=== PATIENT | female | born 1975 | race Caucasian/White ===

== ENCOUNTER 2019-09-26 19:21 | Emergency (ER) | payer BC, SELFPAY ==
--- NOTE | ~2019-09-26 | CT_ITS ---
EXAMINATION: CT soft tissue neck w con DATE: 09/26/2019 20:50 INDICATION: Left neck swelling TECHNIQUE: Computed tomography (CT) of the neck was performed with 75 mL Omnipaque-350 intravenous co ntrast. The dose-length product was 378.46 mGy-cm. Automated exposure control and iterative reconstru ction technique were employed. COMPARISON: None FINDINGS: There is enlargement of the left submandibular gland with mild surrounding inflammation, co nsistent with sialoadenitis. No stone identified. Mucosal space is normal. Parapharyngeal spaces are symmetric. No significant cervical lymphadenopathy. Thyroid gland is normal. Lung apices are normal. No abscess identified. No significant vascular abnormality. IMPRESSION: 1. Sialoadenitis of the left submandibular gland. Reviewed, dictated and finalized at location A.
[2019-09-26 19:30] VITALS: BP 135/88; PULSE 58; RESP 16; TEMP 36.7; O2SAT 100
--- NOTE | 2019-09-26 20:05 | ED.GENADULT ---
HPI - General Adult General Chief complaint: Unspecified Stated complaint: swelling to neck Time Seen by Provider: 09/26/19 20:01 Source: RN notes reviewed History of Present Illness HPI narrative: Patient presents emergency department from home for left-sided neck swelling. Patient states symptoms began this morning. She noted swelling in the left side of her jaw and neck. She denies having fevers or chills rhinorrhea ear pain. Notes mild sore throat but denies any difficulty swallowing or shortness of breath. Patient had gone to urgent care had been diagnosed with proctitis and has been given an injection of steroids and sent home with prednisone and Augmentin. She states she has not taken Augmentin at this point but knows the swelling was increased and came to the ED for further evaluation. Related Data Home Medications Medication Instructions Recorded Confirmed fluoxetine 20 mg capsule 20 mg PO DAILY 06/16/19 06/16/19 Allergies Allergy/AdvReac Type Severity Reaction Status Date / Time No Known Allergies Allergy Unknown Verified 09/26/19 19:35 Review of Systems Review of Systems: Narrative: Gen.: Denies fevers or chills Eyes: Denies eye pain or visual change ENT: See HPI Respiratory: Denies shortness of breath or cough CV: Denies chest pain or palpitations GI: Denies abdominal pain nausea, emesis or diarrhea Musculoskeletal: Denies back pain or muscle pain Neuro: Denies numbness, tingling, weakness or focal weakness Skin: Denies rash Except as documented, all other systems reviewed and negative [facility] Past Medical History Medical History Anxiety Diverticulosis GERD (gastroesophageal reflux disease) Surgical History Surgical History (Updated 06/16/19 @ 11:05 by Whit Melchor CMA) History of radical hysterectomy 08/2017 Family History Family History (Updated 06/16/19 @ 11:04 by Whit Melchor CMA) Father Patient's father is in good health Mother MVA (motor vehicle accident) Social History Social History Smoking status: Former smoker Smoking end date: 02/25/93 Alcohol intake: current Exam Narrative: Exam Narrative: APPEARANCE: No acute distress, nontoxic, resting in bed EYES: EOMI HEENT: Normocephalic, atraumatic, TMs clear bilaterally nares patent oral mucosa moist, no erythema exudate posterior pharynx, tonsils 2+, uvula midline, tolerating own secretions, voice normal, no sub-lingular tenderness, no submandibular tenderness, mild swelling and tenderness over the left lateral jaw and the left lateral neck but no overlying erythema no fluctuance RESPIRATORY: No respiratory distress Clear to auscultation bilaterally with no rhonchi wheezing or rales. CARDIOVASCULAR: Regular rate and rhythm without murmurs rubs or gallops. ABDOMINAL: Soft, nontender, nondistended, no rebound or guarding MUSCULOSKELETAl: Moves all extremities. No clubbing, cyanosis or edema. NEURO: Awake and alert. Following commands, speech normal, no focal deficits SKIN:: Warm, dry. No rashes lesions or abrasions PSYCHIATRIC: Normal affect/mood, Course Course Emergency Course: Patient currently with prescription for steroids and Augmentin at home Discussed with patient results of workup and diagnosis. Discussed need for follow-up with primary care, proper use of medication, and reasons to return to the emergency department. Patient understands and agrees to current treatment plan Vital Signs Vital signs: Vital Signs Temperature 98.0 F 09/26/19 19:30 Pulse Rate 58 L 09/26/19 19:30 Respiratory Rate 16 09/26/19 19:30 Blood Pressure 135/88 09/26/19 19:30 Pulse Oximetry 100 09/26/19 19:30 Temperature 98.0 F 09/26/19 19:30 Pulse Rate 66 09/26/19 20:32 Respiratory Rate 18 09/26/19 20:32 Blood Pressure 129/90 09/26/19 20:32 Pulse Oximetry 100 09/26/19 20:32 Medical Dec
[2019-09-26] MEDS: SODIUM CHLORIDE 0.9% IV 1,000 ML 999 ML IV CONT (20:17)
[2019-09-26 20:21] LABS: Basophils Absolute Auto 0.1 K/mm3 (0.0-0.1); Basophils Percent Auto 0.8 % (0.2-1.2); Eosinophils Percent Auto 0.5 % (0-4.4); Hematocrit 40.1 % (37.0-47.0); Hemoglobin 13.7 g/dL (12.0-15.0); Immature Granulocyte Absolute 0.06 K/mm3 (0.00-0.031); Immature Granulocyte Percent A 0.7 % (0-0.5); Lymphocytes Absolute Auto 1.03 K/mm3 (0.9-3.2); Lymphocytes Percent Auto 11.9 % (18.3-44.2); Mean Corpuscular HGB Conc 34.2 g/dl (32-36); Mean Corpuscular Hemoglobin 30.3 pg (26-34); Mean Corpuscular Volume 88.7 fl (80-100); Monocytes Absolute Auto 0.1 K/mm3 (0.1-0.6); Neutrophils Absolute Auto 7.4 K/mm3 (1.3-6.7); Neutrophils Percent Auto 85.1 % (45.5-73.1); Platelet Count Result 297 k/mm3 (150-375); Red Blood Count 4.52 M/mm3 (4.2-5.4); Red Cell Distribution Width 12.4 % (11.5-14.5); White Blood Count 8.7 K/mm3 (4.5-10.0)
[2019-09-26 20:32] VITALS: BP 129/90; PULSE 66; RESP 18; O2SAT 100
[2019-09-26 20:34] LABS: Alanine Aminotransferase 31 U/L (4-35); Albumin Level 4.5 g/dL (3.5-5.1); Alkaline Phosphatase 71 U/L (38-126); Aspartate Amino Transferase 29 U/L (14-36); Bilirubin,Total 1.2 mg/dL (0.2-1.3); Blood Urea Nitrogen 11 mg/dL (7-17); Calcium 9.2 mg/dL (8.4-10.2); Carbon Dioxide 25 mmol/L (22-30); Chloride 101 mmol/L (98-107); Estimated CRCL calculation 69 ml/min; Estimated Glomerular Filt Rate > 60; Glucose 114 mg/dL (65-105); Sodium 134 mmol/L (137-145)
[2019-09-26] MEDS: AMPICILLIN SODIUM/SULBACTAM 3 GM in SODIUM CHLORIDE 0.9% IV 100 ML IVPB (21:57)
[2019-09-26 22:29] VITALS: BP 126/73; PULSE 78; RESP 18; O2SAT 98
== END 2019-09-26 22:31 | disposition home or self-care (01) ==
PROVIDERS: Emergency Provider Emergency Medicine; PCP Internal Medicine
DX: K11.20 Sialoadenitis, unspecified (principal); F41.9 Anxiety disorder, unspecified; K57.90 Diverticulosis of intestine, part unspecified, without perforation or abscess without bleeding; K21.9 Gastro-esophageal reflux disease without esophagitis; Z87.891 Personal history of nicotine dependence
CPT/HCPCS: 36415; 70491; 80053; 85025; 87081; 87880; 96361; 96365; 99284; J7030; Q9967

== ENCOUNTER 2020-05-09 17:03 | Outpatient (CLI) | payer BC, SELFPAY | END 2020-05-09 17:04 | disposition home or self-care (01) | LOC: ANHCOVIDVC 17:03 | PROVIDERS: PCP Internal Medicine | DX: Z23 Encounter for immunization (principal) | CPT/HCPCS: 0001A; 91300 ==

== ENCOUNTER 2020-05-16 16:17 | Outpatient (CLI) | payer BC, SELFPAY ==
--- NOTE | ~2020-05-16 | CT_ITS ---
EXAMINATION: CT abdomen pelvis w con DATE: 05/16/2020 16:56 INDICATION: Lower abdominal pain, diarrhea for a few weeks TECHNIQUE: Computed tomography (CT) of the abdomen and pelvis was performed with 100 cc Omnipaque 350 intravenous contrast. Automated exposure control and iterative reconstruction technique were employe d. Exam dose: 457.93 mGy-cm total exam DLP. COMPARISON: 11/17/2016 CT abdomen pelvis FINDINGS: Bilateral lower lobe discoid atelectasis. Trace pericardial effusion. No pleural effusion. No hepatic, splenic, pancreatic, adrenal or renal space-occupying mass lesion is evident. No urinary tract calculus or hydroureteronephrosis. The urinary bladder is unremarkable. Status post hysterectom y. Normal caliber of the abdominal aorta. No intraperitoneal or retroperitoneal or pelvic mass lesion or adenopathy or ascites. Normal appendix. Diverticulosis of left and to a lesser extent right colon; no CT evidence of diverticulitis. No bowel obstruction, bowel wall thickening, pneumatosis or intraperitoneal free air. T9 vertebral body hemangioma, benign. No suspicious osteolytic or osteoblastic lesions are identified . IMPRESSION: Diverticulosis of the colon; no CT evidence of diverticulitis Normal appendix No bowel obstruction or bowel wall thickening Trace pericardial effusion Reviewed, dictated and finalized at Location A. Reviewed, dictated and finalized at location B.
== END 2020-05-16 16:18 | disposition home or self-care (01) ==
PROVIDERS: PCP Internal Medicine; Visit Provider Nurse Practitioner
DX: R10.9 Unspecified abdominal pain (principal); K57.30 Diverticulosis of large intestine without perforation or abscess without bleeding
CPT/HCPCS: 74177; Q9967

== ENCOUNTER 2020-05-30 17:00 | Outpatient (CLI) | payer BC, SELFPAY | END 2020-05-30 17:01 | disposition home or self-care (01) | LOC: ANHCOVIDVC 17:00 | PROVIDERS: PCP Internal Medicine | DX: Z23 Encounter for immunization (principal) | CPT/HCPCS: 0002A; 91300 ==

== ENCOUNTER 2020-10-26 16:05 | Outpatient (CLI) | payer BC, SELFPAY ==
--- NOTE | ~2020-10-26 | XR_ITS ---
EXAMINATION: XR knee RT 3V DATE: 10/26/2020 16:24 INDICATION: Right knee pain. TECHNIQUE: 3 views of right knee were obtained. COMPARISON: None. FINDINGS: Bone alignment is normal. No fracture. There is mild tricompartmental osteoarthritis charac terized by tiny marginal osteophytes. No joint space narrowing. There is a small knee joint effusion. IMPRESSION: 1. Mild right knee osteoarthritis. 2. Small right knee joint effusion. Reviewed, dictated and finalized at location A.
== END 2020-10-26 16:06 | disposition home or self-care (01) ==
PROVIDERS: PCP Internal Medicine; Visit Provider Nurse Practitioner
DX: M25.561 Pain in right knee (principal); M17.11 Unilateral primary osteoarthritis, right knee; M25.461 Effusion, right knee
CPT/HCPCS: 73562

== ENCOUNTER → 2020-12-13 16:31 | Outpatient (REF) | payer BC, SELFPAY | LOC: ANHLAB 16:31 | PROVIDERS: PCP Internal Medicine; Visit Provider Nurse Practitioner | DX: D17.22 Benign lipomatous neoplasm of skin and subcutaneous tissue of left arm (principal); D17.21 Benign lipomatous neoplasm of skin and subcutaneous tissue of right arm | CPT/HCPCS: 88304 ==

== ENCOUNTER 2021-01-16 12:30 | Outpatient (RCR) | payer BC, SELFPAY ==
--- NOTE | 2020-12-16 13:55 | PTOPEVAL ---
PHYSICAL THERAPY EVALUATION Thank you for referring Christin Cope to [facility].? Christin was evaluated for the dx of right knee pain. The patient is scheduled to be seen for therapy?2 x/week for 4 weeks. Please review, sign, date and return this plan of care JOSEFA. I agree with and certify that the following plan of care is medically necessary. Referring Physician Date Attending Provider: Miky Park MD *PT Outpatient Evaluation Start: 12/16/20 12:34 Freq: Status: Active Protocol: Document 12/16/20 12:34 MLV (Rec: 12/16/20 13:41 MLV [id number]) Therapy Assessment Status Assessment Status Assessment Status Evaluation Evaluation Information Problem Diagnosis right knee pain Onset 3-4 months ago Cause no injury Additional Evaluation Detail The patient reports having knee pain beginning a few months ago. The patient had a swelling feeling with pain during stairs/squatting and with knee extension. The patient also had increased pain when standing for longer periods of time. The patient works with computers/sitting. The patient does house/ yardwork, walks her dog and has no aggressive hobbies. The patient has had some relief with the prescribed anti inflammatory. Diagnostic Tests X-Rays For This Problem Yes: mild fluid build up, mild arthritis Pain Assessment Timing of Pain Assessment Timing of Pain Assessment Assessment Pain Scale Pain Scale Used Numeric (1 - 10) Self Report Pain Assessment Right Lateral Knee(s) Reported Pain Level 0 Other Pain Description before meds, the pain was a 6- 7 with stairs/standing Greatest Pain Intensity 3 Pain Aggravating Factors Stair Climbing,Weight Bearing/ Standing Pain Score Pain Score 0: Self Report Interventions Used Interventions Used By Clinicians Education,Electrical Stimulation,Exercise,Ice Pain Relief Interventions Used By Inactivity/Rest,Medication Patient Lower Extremity Range of Motion General Lower Extremity Range of Motion Reason Not Measured WFL/Left,WFL/Right Gross Lower Extremity Range of Motion knee active motion: left 0-142' Comments right 0-138' w/o pain
--- NOTE | 2020-12-26 12:53 | PCPTNOTE ---
Patient did not show up for scheduled appointment this date; called patient stating she forgot appointment is aware of appointment on Saturday at 12:30pm.
--- NOTE | 2021-01-02 12:35 | PCPTNOTE ---
Patient called & cancelled scheduled appointment this date due to not feeling well.
--- NOTE | 2021-01-09 13:01 | PCPTNOTE ---
Patient called & cancelled scheduled appointment this-no reason given on message.
--- NOTE | 2021-01-16 13:03 | PTOPEVAL ---
PHYSICAL THERAPY DISCHARGE Thank you for referring Christin Cope to [facility].? The patient has completed 6 visits for the dx of right knee pain. Goals mostly met and skilled PT peaked. DC PT. Please review, sign, date and return this plan of care JOSEFA. I agree with and certify that the following plan of care is medically necessary. Referring Physician Date Attending Provider: Miky Park MD *PT Outpatient Discharge Start: 12/16/20 12:34 Freq: Status: Active Protocol: Document 01/16/21 12:37 MLV (Rec: 01/16/21 13:02 [facility] [id number]) Therapy Assessment Status Assessment Status Assessment Status Discharge Evaluation Information Problem Additional Evaluation Detail The patient reports she feels she is about 60% better than at the eval for knee symptoms. The patient states the exercises are getting easier and has no increased pain with them. The patient saw the MD, and is being checked further for possible RA. Pain Assessment Timing of Pain Assessment Timing of Pain Assessment Assessment Pain Scale Pain Scale Used Numeric (1 - 10) Self Report Pain Assessment Right Lateral Knee(s) Reported Pain Level 2 Pain Frequency Intermittent Other Pain Description 4 intermittent with activities Pain Aggravating Factors Stair Climbing Other Pain Aggravating Factors squat/kneel Pain Behaviors Guarding Pain Score Pain Score 2: Self Report Interventions Used Interventions Used By Clinicians Education Pain Relief Interventions Used By Exercise Patient Lower Extremity Range of Motion General Lower Extremity Range of Motion Gross Lower Extremity Range of Motion right knee 0-142 active w/o Comments pain (improved) Lower Extremity Muscle Strength Testing General Lower Extremity Strength Reason Not Measured WNL/Left,WNL/Right Gross Lower Extremity Strength janice VMO 5/5, hip IR 5/5 (improved) Muscle Length Testing Muscle Length Testing Piriformis w/Hip Flexion >90 Degrees (R) WFL,(L) WFL Smiley's Test Hip Muscle Length (R) Mild Tightness,(L) Mild Tightness Left Hamstring Length -18 Query Text:(90 - 90 Position) Right Hamstring Length -21 Query Text:(90 - 90 Position) Gastrocnemius Length (R) WFL,(L) WFL Muscle Length Testing Comments prone knee flexion WNL's janice. Palpation Assessment Palpation Palpation 1. Bilateral patellar lateral
== END 2021-01-17 09:21 | disposition home or self-care (01) ==
LOC: ANHPT 12:30
PROVIDERS: PCP Internal Medicine; Visit Provider Orthopaedic Surgery
DX: M25.561 Pain in right knee (principal); G89.29 Other chronic pain
CPT/HCPCS: 97014; 97110; 97161; G0283

== ENCOUNTER 2021-07-21 00:18 | Day surgery (SDC) | payer BC, SELFPAY ==
[2021-07-10 15:09] VITALS: BMI 28.3
[2021-07-21 06:20] VITALS: BP 123/85; PULSE 75; RESP 18; TEMP 36.2; O2SAT 97; BMI 28.2
[2021-07-21] MEDS: LACTATED RINGERS 1,000 ML 150 ML IV CONT (06:40)
--- NOTE | 2021-07-21 07:07 | P.PNAN_ITS ---
Anes - Initial Pre Proc Eval Procedure: Operation Date: 07/21/21 07:30 Proposed Procedures p Screening Colonoscopy - Esteban Middleton MD Date/Time: 07/21/21 07:07 Surgeon: Esteban Middleton MD Pre Op Diagnosis: neoplasm screening Patient Data Age: 46 Gender: F Height: 1.7 m Weight: 81.8 kg Last Vital Signs Temp 97.1 F L 07/21/21 06:20 Pulse 75 07/21/21 06:20 Resp 18 07/21/21 06:20 BP 123/85 07/21/21 06:20 Pulse Ox 97 07/21/21 06:20 O2 Del Method Room Air 07/21/21 06:20 Allergies Allergy/AdvReac Type Severity Reaction Status Date / Time No Known Allergies Allergy Unknown Verified 07/21/21 06:30 Home Medications Medication Instructions Recorded Confirmed Type multivitamin 1 tablet PO DAILY 05/22/21 07/21/21 History fluoxetine 40 mg capsule 40 mg PO DAILY #90 caps 06/09/21 07/21/21 Rx omega-3 fatty acids-vitamin E 1 cap PO DAILY 07/10/21 07/21/21 History 1,000 mg capsule Patient hx anesthesia problems: none Family hx anesthesia problems: none Results Review: All pre-operative results and documents have been reviewed as part of the pre- operative evaluation. [facility] Past Medical History Medical History Anxiety Diverticulosis GERD (gastroesophageal reflux disease) Hyperlipidemia Right knee pain Surgical History Surgical History History of radical hysterectomy 08/2017 Family History Family History Father Patient's father is in good health Mother MVA (motor vehicle accident) Social History Social History Smoking status: Former smoker Tobacco type: cigarettes Smoking end date: 02/25/93 Alcohol intake: current Drinks per week: 2 Living arrangements: with family Additional occupation/education comments: [employer], full stack web developer Gender identity (if verbalized by the patient): Female Anes - Eval Final PreProcedure Day of Procedure 07/21/21 07:07 Patient weight: overweight Heart: regular rate and rhythm Lungs: clear to auscultation Airway: Mallampati scale class II Neurological: alert and oriented Last oral intake: >/= 8 hours ASA classification: II Emergent: no Anesthetic plan: proceed Anesthesia type and monitoring: general GIVS and standard monitoring Results Review: All pre-operative results and documents have been reviewed as part of the pre- operative evaluation. Informed Consent: The patient's anesthetic plan and its attendant risks and benefits were discussed with the patient/family/POA. Questions were solicited and answers provided to the satisfaction of the patient/family/POA.
--- NOTE | 2021-07-21 07:21 | P.CONGI_ITS ---
Assessment and Plan Assessment and plan (1) Screening for colon cancer: Code(s): Z12.11 - Encounter for screening for malignant neoplasm of colon Status: Acute Assessment and Plan: Patient presents today for neoplasia screening colonoscopy. Appears to be at average risk for colon polyps. GI Consult Note Consult date/time: 07/21/21 07:21 Reason for consult: Neoplasia screening. HPI: Christin Cope is a 46 year old female Referred for neoplasia screening colonoscopy. Patient's current weight appetite and bowel movements are normal. She denies abdominal pain. She has had no bleeding. Family history is noncontributory. Patient has never had a previous colonoscopy. She is referred today for screening colonoscopy. Review of Systems Review of Systems: Review of systems noncontributory. [facility] Past Medical History Medical History Anxiety Diverticulosis GERD (gastroesophageal reflux disease) Hyperlipidemia Right knee pain Surgical History Surgical History History of radical hysterectomy 08/2017 Family History Family History Father Patient's father is in good health Mother MVA (motor vehicle accident) Social History Social History Smoking status: Former smoker Tobacco type: cigarettes Smoking end date: 02/25/93 Alcohol intake: current Drinks per week: 2 Living arrangements: with family Additional occupation/education comments: [employer], python web developer Gender identity (if verbalized by the patient): Female Meds Home Medications and Allergies Home Medications Medication Instructions Recorded Confirmed Type multivitamin 1 tablet PO DAILY 05/22/21 07/21/21 History fluoxetine 40 mg capsule 40 mg PO DAILY #90 caps 06/09/21 07/21/21 Rx omega-3 fatty acids-vitamin E 1 cap PO DAILY 07/10/21 07/21/21 History 1,000 mg capsule Allergies Allergy/AdvReac Type Severity Reaction Status Date / Time No Known Allergies Allergy Unknown Verified 07/21/21 06:30 Vital Signs Vital Signs - 24 hr 07/21/21 06:20 Temperature 97.1 F L Pulse Rate 75 Respiratory Rate 18 Blood Pressure 123/85 Pulse Oximetry 97 Oxygen Delivery Room Air Exam Narrative: Physical exam reveals patient to be alert. Vital signs stable. HEENT exam is unremarkable. Patient is anicteric. Lungs are clear to auscultation and percussion. Heart is without murmur or extra sounds. Abdominal exam bowel sounds are present soft nontender with no organomegaly. Digital external rectal exam is normal.
[2021-07-21 07:43] VITALS: BP 109/78; PULSE 73; RESP 19; O2SAT 99
[2021-07-21 07:53] VITALS: BP 109/74; PULSE 68; RESP 17; O2SAT 100
[2021-07-21 08:03] VITALS: BP 126/80; PULSE 56; RESP 20; O2SAT 100
== END 2021-07-21 08:10 | disposition home or self-care (01) ==
PROVIDERS: PCP Internal Medicine; Referring Provider Clinical Nurse Specialist; Visit Provider Internal Medicine Gastroenterology
PROC: 0DJD8ZZ Inspection of Lower Intestinal Tract, Via Natural or Artificial Opening Endoscopic (ICD-10-PCS; CPT 45378; principal; 2021-07-21 07:30)
DX: Z12.11 Encounter for screening for malignant neoplasm of colon (principal); K57.30 Diverticulosis of large intestine without perforation or abscess without bleeding; K21.9 Gastro-esophageal reflux disease without esophagitis; K64.8 Other hemorrhoids; E78.5 Hyperlipidemia, unspecified; F41.9 Anxiety disorder, unspecified; Z87.891 Personal history of nicotine dependence
CPT/HCPCS: 45378; J2704; J7120

== ENCOUNTER → 2022-03-12 10:39 | Outpatient (CLI) | payer BC, SELFPAY ==
--- NOTE | ~2022-03-12 | US_ITS ---
US abdomen limited INDICATION: Left upper quadrant pain PROCEDURE: Realtime right upper abdominal ultrasound. COMPARISON: Ultrasound dated 04/17/2016 FINDINGS: The spleen is within normal limits without focal mass. Spleen measures 8.9 cm. No other lef t upper abdominal masses are identified. Left kidney is grossly unremarkable. IMPRESSION: 1: Unremarkable limited left upper abdominal ultrasound. Reviewed, dictated and finalized at location A. [employer]
== END ==
PROVIDERS: PCP Nurse Practitioner; Visit Provider Nurse Practitioner
DX: R10.12 Left upper quadrant pain (principal)
CPT/HCPCS: 76705

== ENCOUNTER 2023-03-27 12:54 | Outpatient (CLI) | payer BC, SELFPAY ==
--- NOTE | 2023-03-27 14:00 | NEURO_ITS ---
Impression: # Complains of numbness of upper extremities. ? # Normal Nerve Conduction Study. No Carpal Tunnel Syndrome or ulnar neuropathy. . ? # Normal needle/EMG exam. ? # Clinical correlation recommended. ?Nerve Conduction Studies Anti Sensory Summary Table Stim Site NR Peak (ms) P-T Amp (?V) Site1 Site2 Delta-P (ms) Dist (cm) Jason (m/s) Left Median Anti Sensory (2-3nd Digit) Wrist 2.6 59.1 Wrist 2-3nd Digit 2.6 14.0 54 Wrist 2.8 61.6 Wrist 2-3nd Digit 2.6 14.0 54 Right Median Anti Sensory (2-3nd Digit) Wrist 2.8 49.8 Wrist 2-3nd Digit 2.8 14.0 50 Wrist 2.6 55.2 Wrist 2-3nd Digit 2.8 14.0 50 Left Radial Anti Sensory (Base 1st Digit) Wrist 2.3 15.8 Wrist Base 1st Digit 2.3 0.0 Right Radial Anti Sensory (Base 1st Digit) Wrist 2.1 25.3 Wrist Base 1st Digit 2.1 0.0 Left Ulnar Anti Sensory (5th Digit) Wrist 2.3 46.0 Wrist 5th Digit 2.3 14.0 61 Right Ulnar Anti Sensory (5th Digit) Wrist 2.1 70.4 Wrist 5th Digit 2.1 14.0 67 Motor Summary Table Stim Site NR Onset (ms) O-P Amp (mV) Site1 Site2 Delta-0 (ms) Dist (cm) Jason (m/s) Left Median Motor (Abd Poll Brev) Wrist 3.1 4.7 Elbow Wrist 4.3 26.0 60 Elbow 7.4 3.9 Right Median Motor (Abd Poll Brev) Wrist 3.1 7.9 Elbow Wrist 4.2 28.0 67 Elbow 7.3 4.6 Left Ulnar Motor (Abd Dig Minimi) Wrist 2.0 4.4 A Elbow Wrist 5.0 30.0 60 A Elbow 7.0 4.1 Right Ulnar Motor (Abd Dig Minimi) Wrist 2.1 5.1 A Elbow Wrist 4.5 29.0 64 A Elbow 6.6 5.7 F Wave Studies NR F-Lat (ms) L-R F-Lat (ms) Left Median (Mrkrs) (Abd Poll Brev) 27.71 0.91 Right Median (Mrkrs) (Abd Poll Brev) 28.62 0.91 Left Ulnar (Mrkrs) (Abd Dig Min) 27.10 0.06 Right Ulnar (Mrkrs) (Abd Dig Min) 27.16 0.06 EMG Side Muscle Nerve Root Ins Act Fibs Amp Dur Recrt Comment Right 1stDorInt Ulnar C8-T1 Nml Nml Nml Nml Nml Right Ext Indicis Radial (Post Int) C7-8 Nml Nml Nml Nml Nml Right Ext Digitorum Radial (Post Int) C7-8 Nml Nml Nml Nml Nml Right BrachioRad Radial C5-6 Nml Nml Nml Nml Nml Right PronatorTeres Median C6-7 Nml Nml Nml Nml Nml Right Abd Poll Brev Median C8-T1 Nml Nml Nml Nml Nml Left 1stDorInt Ulnar C8-T1 Nml Nml Nml Nml Nml Left Ext Indicis Radial (Post Int) C7-8 Nml Nml Nml Nml Nml Left Ext Digitorum Radial (Post Int) C7-8 Nml Nml Nml Nml Nml Left BrachioRad Radial C5-6 Nml Nml Nml Nml Nml Left PronatorTeres Median C6-7 Nml Nml Nml Nml Nml Left Abd Poll Brev Median C8-T1 Nml Nml Nml Nml Nml MTDD
== END 2023-03-27 12:55 | disposition home or self-care (01) ==
PROVIDERS: PCP Internal Medicine; Visit Provider Clinical Nurse Specialist
DX: R20.0 Anesthesia of skin (principal); R20.2 Paresthesia of skin
CPT/HCPCS: 95886; 95911

== ENCOUNTER → 2023-03-28 12:05 | Outpatient (CLI) | payer BC, SELFPAY ==
--- NOTE | ~2023-03-28 | XR_ITS ---
XR_CERV2-3V_CR DATE: 03/28/2023 12:31 INDICATION: Pain at right side of neck. Skin anesthesia. TECHNIQUE: AP, open-mouth, lateral views COMPARISON: None FINDINGS: There is straightening of cervical spine which may be due to muscle spasm. C1 and C2 are normally aligned and the odontoid process is intact. Is mild degenerative spurring anteriorly at C3-4. There is mild loss of interspace height and minimal anterior and posterior spurring at C4-5. C2-3, C5-6 and C6-7 interspaces are well preserved. No fracture or dislocation or locked facet. C1 and C2 are normally aligned and the odontoid process i s intact. No prevertebral soft tissue swelling. IMPRESSION: Straightening of cervical spine which may be due to muscle spasm. Mild cervical spondylosis Reviewed, dictated and finalized at Location A. Reviewed, dictated and finalized at location L. TYPE KEYBOARD OPERATOR
== END ==
PROVIDERS: PCP Clinical Nurse Specialist; Visit Provider Clinical Nurse Specialist
DX: R20.0 Anesthesia of skin (principal); R20.2 Paresthesia of skin; M47.892 Other spondylosis, cervical region
CPT/HCPCS: 72040

== ENCOUNTER 2023-06-03 12:30 | Outpatient (RCR) | payer BC, SELFPAY ==
--- NOTE | 2023-04-29 14:05 | OTOPEVAL1 ---
Assessment and note entered by Gilson Araiza, JHONNY/Cesario, CHT Evaluation Information Assessment Status Evaluation Diagnosis anesthesia of skin, paresthesia of skin, pain in unspecified hand Subjective Information Patient reports experiencing right hand pain and numbness for a few months. 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 She is left handed and reports worst symptoms on the right. EMG is normal for median and ulnar nerves. Reported Pain Level Pain Score 0: Self Report Assessment OT Clinical Summary Patient referred to OT with symptoms of pain and numbness/tingling in the hands, right worse than left. She presents with signs and symptoms consistent with radial tunnel syndrome. Upper nerve tension test (+) for the radial nerve. Skilled OT indicated for postural HEP, workstation ergonomics education, nerve glides, modalities, manual therapy, and HEP instruction/progression to facilitate reduced wrist/finger extensor strain and radial nerve irritation while working. Plan of Care Interventions Therapeutic Exercise,Manual Therapy,Therapeutic Activities,Hot Pack/Cold Pack,Check Out for Orthotic/Pr,Ultrasound,Paraffin OT Services Indicated Yes Treatment Frequency and 1x/week for 5 visits Duration These treatments will address the objective and functional deficits as defined above. The patient will be advanced safely and appropriately in order for the patient to progress towards his/her prior level of function. Additional exercises will be introduced and as well as a comprehensive home exercise program upon discharge, if needed, ?to ensure carryover of functional gains achieved in the clinic. This treatment plan has been reviewed and agreement upon by the patient.
--- NOTE | 2023-04-29 14:05 | OPREHPOC ---
Outpatient Therapy Plan of Care This is a Multidisciplinary Plan of Care that may contain components documented by all disciplines (PT, OT, and ST.) OT Problem 1 OT Problem #1 Knowledge Deficit OT Goal 1 Goal 1. Patient to be independent with instructed materials. Target Visit 6 OT Problem 2 OT Problem #2 Pain OT Goal 1 Goal 1. Patient to report reduced pain when her hand is bumped . Target Visit 6 OT Problem 3 OT Problem #3 Impaired Flexibility OT Goal 1 Goal 1. Patient to be able to move through full radial nerve tension test without pain. Target Visit 6 OT Problem 4 OT Problem #4 Impaired Strength OT Goal 1 Goal 1. Patient to be able to complete postural HEP independently. 2. Patient to be able to complete wrist gross strengthening with 2 lb. free weight x20 reps without onset of symptoms. Target Visit 6
--- NOTE | 2023-05-27 13:12 | PCOTNOTE ---
Patient called & cancelled scheduled appointment this date due to illness.
--- NOTE | 2023-06-03 13:10 | OTOPDC ---
Assessment and note entered by Gilson Araiza, JHONNY/Cesario, T Discharge Summary 06/03/23 Diagnosis anesthesia of skin, paresthesia of skin, pain in unspecified hand Subjective Information Patient reports she has experienced no pain or numbness in the last 2 weeks. She reports some residual fatigue in the arm with certain tasks, which she attributes to weakness. She has been compliant with her strengthening HEP for the hand and wrist. 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 -She progressed to being able to tolerate a radial nerve glide through full ROM. At the start of care she was unable to flex the wrist with an internally rotated arm. -She is no longer having tenderness with palpation over the radial tunnel. Pain Score 0: Self Report Assessment OT Clinical Summary Patient has participated in 4 OT sessions focused on right hand/wrist pain and paresthesia. She was having signs and symptoms consistent with radial tunnel syndrome. She has been completing nerve glides and strengthening and is compliant with all materials. She presents today reporting no symptoms x2 weeks. She is experiencing some fatigue associated with weakness. Patient to continue to progress her strengthening HEP, increasing reps and weight as tolerated. No further skilled OT indicated at this time. Thank you for this referral. Plan of Care OT Services Indicated No
== END 2023-07-15 11:29 | disposition home or self-care (01) ==
LOC: ANHOT 12:30
PROVIDERS: PCP Clinical Nurse Specialist; Visit Provider Clinical Nurse Specialist
DX: M79.641 Pain in right hand (principal); R20.0 Anesthesia of skin; R20.2 Paresthesia of skin
CPT/HCPCS: 97018; 97110; 97140; 97165

== ENCOUNTER 2023-09-20 11:19 | Emergency (ER) | payer BC, SELFPAY ==
--- NOTE | ~2023-09-20 | XR_ITS ---
EXAMINATION: XR ankle LT min 3V, XR foot LT min 3V DATE: 09/20/2023 11:46 INDICATION: Left foot and ankle injury post fall down stairs TECHNIQUE: 1. Anteroposterior, mortise, additional oblique and lateral view of the left ankle were obtained. 2. Dorsoplantar, two oblique and lateral views of the left foot were obtained. COMPARISON: None. FINDINGS: Alignment of the left foot and ankle is normal. Chronic corticated ossicle at the tip of the lateral malleolus likely sequela of prior anterior talofibular ligament sprain. No acute fracture. No fractur e or osteochondral lesion. Joint spaces are well maintained. No ankle joint effusion. Soft tissue swe lling about the lateral malleolus. IMPRESSION: 1. No acute osseous abnormality at the left foot or ankle. Reviewed, dictated and finalized at location A. IMPRESSION: 1. No acute osseous abnormality at the left foot or ankle.
[2023-09-20 11:29] VITALS: BP 131/89; PULSE 66; RESP 16; TEMP 36.3; O2SAT 99
--- NOTE | 2023-09-20 11:31 | ED.LOWEXIN ---
HPI - Extremity Injury (Lower) General Chief Complaint: Extremity Injury, Lower Stated Complaint: Injured Left Ankle Time Seen by Provider: 09/20/23 11:31 Source: patient, RN notes reviewed and old records reviewed Mode of arrival: ambulatory Limitations: no limitations History of Present Illness HPI Narrative: patient presents with complaints of left lateral ankle pain and left dorsal foot pain after falling on 1 step yesterday. She denies other injury and trauma. She voices no other concerns or complaints at this time. She is observed ambulating with a fairly normal gait. She has been taking Tylenol for her symptoms with good relief. Pedal pulses present, neurovascular status intact. Related Data Home Medications Medication Instructions Recorded Confirmed multivitamin 1 tablet PO DAILY 05/22/21 08/27/23 omega-3 fatty acids-vitamin E 1 cap PO DAILY 07/10/21 08/27/23 1,000 mg capsule ferrous sulfate 325 mg (65 mg 325 mg PO DAILY 03/01/23 08/27/23 iron) tablet (Iron (ferrous sulfate)) Allergies Allergy/AdvReac Type Severity Reaction Status Date / Time No Known Allergies Allergy Unknown Verified 08/27/23 10:49 Review of Systems Review of Systems: All systems reviewed & are unremarkable except as noted in HPI and below Constitutional: Constitutional: Reports no additional constitutional complaints ENT: Reports system reviewed and no additional complaints, except as documented Cardiovascular: Cardiovascular: Reports no additional cardiovascular complaints Respiratory: Respiratory: Reports no additional respiratory complaints Gastrointestinal: Gastrointestinal: Reports no additional gastrointestinal complaints Musculoskeletal: Musculoskeletal: Reports arthralgias and Reports joint swelling (left lateral ankle) Comments: left lateral ankle Neurologic: Denies Sensory deficit (Neuro), Denies tingling and Denies paresthesias [facility] Past Medical History Medical History Anxiety Diverticulosis GERD (gastroesophageal reflux disease) Hyperlipidemia Right knee pain Surgical History Surgical History History of partial hysterectomy 08/2017 Family History Family History Father Patient's father is in good health Mother MVA (motor vehicle accident) Social History Social History Smoking status: Former smoker Tobacco type: cigarettes Smoking end date: 02/25/93 Alcohol intake: current Drinks per week: 2 Substance use type: does not use Do You Feel Safe in your Home?: Yes Lack of Transportation: No Lack of Food: Never True Current Housing: I Have Housing Concerned About Future Housing: No Difficulty Paying Gas/Electric Bills: No Difficulty Paying for Meds: No Currently Unemployed: No Education: Master's Degree or Higher Difficulty w/ Childcare or Family Care: No Living arrangements: with family Occupation/Education: occupation Additional occupation/education comments: [employer], linux developer Gender identity (if verbalized by the patient): Female Comments At the time of my signature, I reviewed and agree with the nursing past medical, surgical, social, and family history. There is no relevant family history pertinent to the patient complaint. Exam Const: General: cooperative, no acute distress, alert and awake Orientation/consciousness: oriented to person, oriented to place and oriented to time HENMT: Head: normal to inspection Resp: Effort & Inspection: normal respiratory effort and able to speak in complete sentences Auscultation: clear to auscultation bilaterally, no crackles, no rales, no rhonchi and no wheezes Cardio: Palpation: normal PMI Rate: regular rate Rhythm: regular rhythm Heart sounds: S1 normal hea
== END 2023-09-20 12:20 | disposition home or self-care (01) ==
PROVIDERS: Emergency Provider Nurse Practitioner Family; PCP Internal Medicine
DX: S93.402A Sprain of unspecified ligament of left ankle, initial encounter (principal); S96.912A Strain of unspecified muscle and tendon at ankle and foot level, left foot, initial encounter; W10.9XXA Fall (on) (from) unspecified stairs and steps, initial encounter; Z87.891 Personal history of nicotine dependence; K21.9 Gastro-esophageal reflux disease without esophagitis; E78.5 Hyperlipidemia, unspecified; Z90.89 Acquired absence of other organs
CPT/HCPCS: 73610; 73630; 99213; G0463

== ENCOUNTER 2024-01-09 14:19 | Emergency (ER) | payer BC, SELFPAY ==
--- NOTE | 2024-01-09 14:21 | ED.URI ---
HPI - URI/Sore Throat General Chief Complaint: Upper Respiratory Infection Stated Complaint: Sore Throat/Bodyaches Time Seen by Provider: 01/09/24 14:21 Source: patient Mode of arrival: ambulatory Limitations: no limitations History of Present Illness HPI Narrative: Christin is a 48-year-old female patient presenting to the clinic today with complaints of sore throat, body aches, and some ear discomfort. She reports symptoms have been going on since Saturday. Denies any known fever or chills. States that some coworkers have cold symptoms at work. MD elicited complaint: sore throat and nasal congestion Related Data Home Medications Medication Instructions Recorded Confirmed multivitamin 1 tablet PO DAILY 05/22/21 01/09/24 omega-3 fatty acids-vitamin E 1 cap PO DAILY 07/10/21 01/09/24 1,000 mg capsule estradiol 0.025 mg/24 hr weekly 1 patch transdermal WEEKLY 01/09/24 01/09/24 transdermal patch Allergies Allergy/AdvReac Type Severity Reaction Status Date / Time No Known Allergies Allergy Unknown Verified 01/09/24 14:35 Review of Systems Review of Systems: Pertinent positives per HPI. Patient denies any fever, chills, rash, headache, visual changes, dizziness, cough, shortness of breath, chest pain, palpitations, nausea, vomiting, diarrhea, constipation, abdominal pain, or any urinary issues. [facility] Past Medical History Medical History Anxiety Diverticulosis GERD (gastroesophageal reflux disease) Hyperlipidemia Right knee pain Surgical History Surgical History History of partial hysterectomy 08/2017 Family History Family History Father Patient's father is in good health Mother MVA (motor vehicle accident) Social History Social History Smoking status: Former smoker Tobacco type: cigarettes Smoking end date: 02/25/93 Alcohol intake: current Drinks per week: 2 Substance use type: does not use Do You Feel Safe in your Home?: Yes Lack of Transportation: No Lack of Food: Never True Current Housing: I Have Housing Concerned About Future Housing: No Difficulty Paying Gas/Electric Bills: No Difficulty Paying for Meds: No Currently Unemployed: No Education: Master's Degree or Higher Difficulty w/ Childcare or Family Care: No Living arrangements: with family Occupation/Education: occupation Additional occupation/education comments: [employer], internet application developer Gender identity (if verbalized by the patient): Female Comments At the time of my signature, I reviewed and agree with the nursing past medical, surgical, social, and family history. There is no relevant family history pertinent to the patient complaint. Exam Narrative: General: Well-developed, well nourished, in no apparent distress Head: Normocephalic, atraumatic Eyes: Pupils equally round and reactive to light bilaterally, EOM intact, sclera and conjunctive clear, no discharge, lids normal Ears: TMs intact and congested, ear canals clear, no drainage, grossly hearing normal. Nose: Nares patent, clear nasal discharge, no inflammation, no sinus tenderness. Mouth: Oral pharynx red without lesions or masses, good dentition, MMM. Neck: Supple, trachea midline, no enlargement of anterior or posterior cervical nodes, no thyroid masses or goiter palpable. Cardio: Regular rate and rhythm, s1 and s2 normal, no murmur appreciated. Resp: Clear to auscultation bilaterally, no rhonchi, rales, wheezing or rubs Course Course Emergency Course: Portions of this record may have been created with voice recognition software. Level of Care: Express Care Visit Vital Signs Vital signs: Vital Signs Temperature 36.6 C 01/09/24 14:30 Pulse Rate 58 L 01/09/24 14:30 Respiratory Rate 16 01/09/24 14:30 Blood Pressure 145/86 H 01/09/24 14:30 Pulse Oximetry 100 01/09/24 14:30 Oxygen Delivery Room Air 01/09/24 14:30 Temperature 36.6 C 01/09/24 14:30 Pulse Rate 58 L 01/09/24 14:30 Respiratory Rate 16 01/09/24 14:30 Blood Pressure 145/86 H 01/09/24 14:30 Pulse Oximetry 100 01/09/24 14:30 Oxygen Delivery Room Air 01/09/24 14:30 Vital signs reviewed MDM - URI/Sore Throat Differential Diagnosis Differential diagnosis: Likely sinusitis, viral infection, influenza and pharyngitis Discharge Plan Discharge Clinical Impression: Viral pharyngitis Patient Disposition: Home, Self-Care Condition: Stable Instructions: Antibiotic Form, Pharyngitis (ED) Additional Instructions: Strep test is negative in the clinic today. We will send strep for culture if this comes back positive we will contact him place you on antibiotics at that time May take DayQuil/NyQuil for cold/flu symptoms Increase fluids and stay well hydrated Tylenol/motrin for pain/fever Flonase and OTC antihistamines as directed Vicks vapor rub to open sinuses Sinus rinses for congestion Cepacol spray, cough drops, throat lozenges, warm tea with honey/lemon, gargle salt water to soothe throat BRAT diet for diarrhea Clear liquids x 24 hours then advance as tolerated for nausea/vomiting Go to the ED if you develop a worsening in your condition- high fever not controlled by Tylenol or Motrin, dehydration, weakness, lethargy, shortness of breath, or chest pain. Follow up with your PCP in 3-5 days if symptoms persist. Prescriptions: No Action estradiol 0.025 mg/24 hr patch weekly 1 patch transdermal WEEKLY multivitamin Tablet 1 tablet PO DAILY Fish Oil 1,000 mg Capsule 1 cap PO DAILY fluoxetine 40 mg capsule 40 mg PO DAILY Qty: 90 1RF (DME) FreeStyle Elvin 3 [place] Misc See Rx Instructions .Route Qty: 1 0RF Rx Instructions: To check gluocose 3-4 times per day. (DME) FreeStyle Elvin 3 Sensor Device See Rx Instructions .Route Qty: 2 5RF Rx Instructions: To check glucose 3-4 times per day Follow-up/Referrals: Orlando Orourke, [Primary Care Provider] - Stand Alone Forms: Work/School Release IP Time of Disposition: 14:42 Quality NIHSS Nursing Documentation ED NIHSS nursing documentation: reviewed/agree
[2024-01-09 14:30] VITALS: BP 145/86; PULSE 58; RESP 16; TEMP 36.6; O2SAT 100
[2024-01-09 14:53] LABS: EDSTREPNEGPOS1 Negative (Negative)
== END 2024-01-09 14:49 | disposition home or self-care (01) ==
PROVIDERS: Emergency Provider Nurse Practitioner Family; PCP Internal Medicine
DX: J02.8 Acute pharyngitis due to other specified organisms (principal); Z87.891 Personal history of nicotine dependence; K21.9 Gastro-esophageal reflux disease without esophagitis; E78.5 Hyperlipidemia, unspecified; Z90.711 Acquired absence of uterus with remaining cervical stump
CPT/HCPCS: 87081; 87880; 99213; G0463